=== PATIENT | male | born 1990 | race Caucasian/White ===

== ENCOUNTER 2020-01-18 12:09 | Emergency (ER) | payer BC ==
[~2020-01-18] VITALS: Ht 167.6 cm; Wt 54.5 kg
[~2020-01-18 12:09] MED LIST: AMOXICILLIN 8751 TAB PO
[2020-01-18 12:14] VITALS: TEMP 96.7
[2020-01-18] MEDS ORDERED: CRUTCHES MC (13:07)
[2020-01-18] MEDS ORDERED: NORCO 325 MG-51 TAB PO (14:02)
[2020-01-18 15:15] VITALS: BP 110/66; PULSE 74
== END 2020-01-18 15:15 | disposition home or self-care (01) ==
LOC: COL.ER 12:09
DX: S82.62XA Displaced fracture of lateral malleolus of left fibula, initial encounter for closed fracture (principal); F17.210 Nicotine dependence, cigarettes, uncomplicated; X50.1XXA Overexertion from prolonged static or awkward postures, initial encounter; Y92.830 Public park as the place of occurrence of the external cause; Y93.51 Activity, roller skating (inline) and skateboarding